=== PATIENT | male | born 1960 | race Hispanic/Latino ===

== ENCOUNTER 2018-07-30 05:48 | Day surgery (SDC) | payer BC ==
[2018-07-28 15:10] VITALS: BP 123/67
[2018-07-28 15:26] LABS: CREATININE 0.9 mg/dL (0.5-1.5); POTASSIUM 4.2 mmol/L (3.5-5.1)
[2018-07-29] MEDS: CEFTRIAXONE SODIUM 1 GM IVP SCH (10:45)
[2018-07-30] VITALS (17 sets, daily range): BP systolic 115–145; BP diastolic 63–81
[~2018-07-30] VITALS: Ht 172.7 cm; Wt 92.0 kg
[~2018-07-30 05:48] MED LIST: ASPI-1181 PO; CEPH500C2 PO; CETI-101 PO; CITRACAL PO; DAPA10TA PO; GENTAMICIN 80 MG/NS 100 ML PB 100 ML IV SCH; METF-444 PO; MONT10TA24 PO; RAMI1.2528 PO; TERA2CAP4 PO; VIT PO
[2018-07-30] MEDS ORDERED: SODIUM CHLORIDE 0.9% 1000ML 1,000 ML IV ONE (06:38)
[2018-07-30] MEDS ORDERED: DEXAMETHASONE SOD PHOSPHATE 10MG/ML 1ML VIAL ONE (07:23)
[2018-07-30] MEDS ORDERED: PROPOFOL 10 MG/ML 20ML VIAL IV ONE (07:23)
[2018-07-30] MEDS ORDERED: ONDANSETRON HCL 4 MG/2 ML VIAL ONE (07:23)
[2018-07-30] MEDS ORDERED: MIDAZOLAM HCL 1 MG/ML 2ML VIAL ONE (07:23)
[2018-07-30] MEDS ORDERED: FENTANYL CITRATE PF 50 MCG/1 ML 2ML VIAL ONE ×3 (07:24→09:17)
[2018-07-30] MEDS ORDERED: LIDOCAINE PF 2% 5ML ABBOJECT ONE (07:28)
[2018-07-30] MEDS: CEFTRIAXONE SODIUM 1 GM IVP SCH (08:25)
[2018-07-30] MEDS ORDERED: EPHEDRINE SULFATE 50 MG/ML AMPULE ONE (08:56)
[2018-07-30] MEDS ORDERED: OPIUM/BELLADONNA ALKALOIDS 1 EACH SUPP.RECT RC ONE (09:06)
[2018-07-30] MEDS ORDERED: PHENAZOPYRIDINE HCL 200 MG TABLET ONE (10:14)
== END 2018-07-30 11:10 | disposition home or self-care (01) ==
LOC: DAH 05:48
PROVIDERS: ATTEND Urology
DX: N40.1 Benign prostatic hyperplasia with lower urinary tract symptoms (principal); N35.919 Unspecified urethral stricture, male, unspecified site; N39.0 Urinary tract infection, site not specified; R39.14 Feeling of incomplete bladder emptying; R33.9 Retention of urine, unspecified; G47.30 Sleep apnea, unspecified; K42.9 Umbilical hernia without obstruction or gangrene; E11.9 Type 2 diabetes mellitus without complications; I10 Essential (primary) hypertension; F32.9 Major depressive disorder, single episode, unspecified; Z79.899 Other long term (current) drug therapy; Z98.890 Other specified postprocedural states
CPT/HCPCS: 36415; 52648; 80048; 82948 ×2; 88307; 96374; A4340; A4354; A4358; A4510; A4600; J0696; J1100; J1580; J2001; J2250; J2405; J2704; J3010 ×3; J3490; J7030 ×2

== ENCOUNTER 2020-02-10 07:24 | Day surgery (SDC) | payer BC ==
[2020-02-07 15:18] LABS: CREATININE 0.8 mg/dL (0.5-1.5)
[2020-02-09 13:51] VITALS: BP 138/81
[~2020-02-10] VITALS: Ht 175.3 cm; Wt 94.1 kg
[2020-02-10] VITALS (17 sets, daily range): BP systolic 112–136; BP diastolic 60–78
[~2020-02-10 07:24] MED LIST changes: +AEC81 PO; -ASPI-1181 PO; -CEPH500C2 PO; -CETI-101 PO; +CETI-89 PO; -DAPA10TA PO; -GENTAMICIN 80 MG/NS 100 ML PB 100 ML IV SCH; +GLYB5TAB8 PO; +LISI10TA7 PO; +METO-408 PO; -MONT10TA24 PO; +MONT10TA96 PO; +OMEP20CA12 PO; +OZEMPIC SQ; -RAMI1.2528 PO; +ROSU10TA28 PO; +TAMS-1 PO; -TERA2CAP4 PO
[2020-02-10] MEDS ORDERED: CEFTRIAXONE SODIUM 1 GM IVP ONE (08:00)
[2020-02-10] MEDS ORDERED: SODIUM CHLORIDE 0.9% 1000ML 1,000 ML IV ONE (08:04)
[2020-02-10] MEDS ORDERED: SUCCINYLCHOLINE 200MG/10ML SYR ONE (11:01)
[2020-02-10] MEDS ORDERED: LIDOCAINE PF 2% 5ML ABBOJECT ONE (11:01)
[2020-02-10] MEDS ORDERED: FENTANYL CITRATE PF 50 MCG/1 ML 2ML VIAL ONE (11:02)
[2020-02-10] MEDS ORDERED: PROPOFOL 10 MG/ML 20ML VIAL IV ONE (11:02)
[2020-02-10] MEDS ORDERED: ROCURONIUM 10MG/1ML SYR 10 MG/ML ML ONE (11:02)
[2020-02-10] MEDS ORDERED: MIDAZOLAM HCL 1 MG/ML 2ML VIAL ONE (11:19)
[2020-02-10] MEDS ORDERED: GLYCOPYRROLATE 1 MG/5 ML SYRINGE ONE (11:48)
[2020-02-10] MEDS ORDERED: NEOSTIGMINE 5MG/5ML SYR IV ONE (11:48)
[2020-02-10] MEDS ORDERED: GENTAMICIN 80 MG/NS 100 ML PB 100 ML IV ONE (11:57)
[2020-02-10] MEDS: OPIUM/BELLADONNA ALKALOIDS 1 EACH SUPP.RECT RC ONE ×2 (12:30→13:11)
--- NOTE | 2020-02-10 13:40 | NUR ---
PATIENT ARRIVED TO DAY PATIENT VIA STRETCHER BY JOEL RODRIGUES. PATIENT [id number], VITAL SIGNS STABLE, DENIES ANY PAIN AT THIS TIME. MADDOX IN PLACE AND DRAINING PINK TINGED URINE.
[2020-02-10] MEDS ORDERED: PHENAZOPYRIDINE HCL 200 MG TABLET ONE (13:50)
--- NOTE | 2020-02-10 14:00 | NUR ---
MADDOX CATHETER BAG CHANGED TO LEG BAG, MADDOX CARE INSTRUCTIONS PROVIDED TO PATIENT AND PATIENT'S SPOUSE/CAREGIVER. BOTH VERBALIZED UNDERSTANDING.
--- NOTE | 2020-02-10 14:02 | NUR ---
DISCHARGE INSTRUCTIONS PROVIDED TO PATIENT AND PATIENT'S SPOUSE. FOLLOW UP APPOINTMENT PROVIDED AND PRESCRIPTIONS PROVIDED WELL. INSTRUCTED TO STOP TAKING ASPIRIN AND TO SEE DOCTOR KEM ON THURSDAY FOR MADDOX CATH REMOVAL.
--- NOTE | 2020-02-10 14:20 | NUR ---
PATIENT DISCHARGED FROM FACILITY VIA WHEELCHAIR AND ASSISTED INTO PRIVATE VEHICLE DRIVEN BY FAMILY MEMBER.
== END 2020-02-10 14:20 | disposition home or self-care (01) ==
LOC: DAH 07:24
PROVIDERS: ATTEND Urology
DX: N40.1 Benign prostatic hyperplasia with lower urinary tract symptoms (principal); N41.1 Chronic prostatitis; N32.89 Other specified disorders of bladder; I10 Essential (primary) hypertension; E11.9 Type 2 diabetes mellitus without complications; Z79.899 Other long term (current) drug therapy; Z20.828 Contact with and (suspected) exposure to other viral communicable diseases
CPT/HCPCS: 36415; 52648; 80048; 82948; A4215; A4221; A4222; A4223; A4358; A4600; A6260; C9803; J0330; J0696; J1580; J2001; J2250; J2704; J2710; J3010; J3490; J7030; U0003; A4340; A4354; J7120